=== PATIENT | female | born 1965 | race African-American/Black ===

== ENCOUNTER 2017-05-07 21:16 | Emergency (ER) | payer MEDICAID ==
[~2017-05-07] VITALS: Ht 152.4 cm; Wt 64.0 kg
[~2017-05-07 21:16] MED LIST: GABA300C10 PO; METF500T4 PO
[2017-05-07 21:25] VITALS: BP 142/87
== END 2017-05-07 22:53 | disposition home or self-care (01) ==
LOC: ED 22:24
DX: J02.9 Acute pharyngitis, unspecified (principal); J32.9 Chronic sinusitis, unspecified
CPT/HCPCS: 71046; 99284

== ENCOUNTER 2018-02-14 14:56 | Emergency (ER) | payer MEDICAID ==
[~2018-02-14] VITALS: Ht 152.4 cm; Wt 67.0 kg
[~2018-02-14 14:56] MED LIST changes: +METF500T17 PO; -METF500T4 PO
[2018-02-14 15:51] LABS: MEAN CORPUSCULAR HEMOGLOBIN 29.7 pg (27.0-34.8); MEAN CORPUSCULAR HGB CONC 33.3 g/dL (32.4-35.8); MEAN CORPUSCULAR VOLUME 89.2 fL (80-100); MEAN PLATELET VOLUME 7.9 fL (7.4-10.4); PLATELET COUNT 338 x10^3/uL (130-400); RED BLOOD COUNT 4.89 x10^6/uL (3.82-5.3); RED CELL DISTRIBUTION WIDTH 13.1 % (9.6-15.2)
[2018-02-14 16:00] LABS: ALBUMIN 3.5 g/dL (3.4-5.0); ANION GAP 10 mmol/L (5-15); CALCIUM 9.4 mg/dL (8.5-10.1); CHLORIDE 109 mmol/L (98-107); CREATININE 0.56 mg/dL (0.55-1.02)
[2018-02-14 16:18] LABS: MD YES
[2018-02-14 16:23] LABS: EOS#(MANUAL) 0.09 x10^3/uL (0.0-0.4); EOS% (MANUAL) 1 % (1-7)
[2018-02-14 16:24] LABS: LYMPH#(MANUAL) 5.07 x10^3/uL (1-3.4); LYMPHS% (MANUAL) 59 % (22-44); MONOS#(MANUAL) 0.69 x10^3/uL (0.3-2.7); MONOS% (MANUAL) 8 % (2-9); SEG#(MANUAL) 2.75 x10^3/uL (1.8-6.8); SEGS% (MANUAL) 32 % (42-75)
[2018-02-14 16:25] LABS: <RBC MORPHOLOGY> NORMAL
[2018-02-14 16:26] LABS: <PLATELET ESTIMATE> ADEQUATE; <PLT MORPHOLOGY> NORMAL PLT MORPH
[2018-02-14 16:34] LABS: MICROSCOPIC NOT IND
[2018-02-14 16:52] LABS: CULTURE INDICATED? NO
[2018-02-14] MEDS ORDERED: KETOROLAC 30 MG/1 ML ONE (16:57)
[2018-02-14] MEDS ORDERED: MECLIZINE CHEWABLE 25 MG TAB ONE (16:57)
[2018-02-14] MEDS ORDERED: MECLIZINE CHEWABLE 25 MG TAB PO ONE (17:00)
[2018-02-14] MEDS ORDERED: KETOROLAC 30 MG/1 ML IM ONE (17:00)
[2018-02-14 18:28] VITALS: BP 114/62
== END 2018-02-14 19:02 | disposition home or self-care (01) ==
LOC: ED 18:38
DX: G44.201 Tension-type headache, unspecified, intractable (principal); E11.65 Type 2 diabetes mellitus with hyperglycemia; I10 Essential (primary) hypertension
CPT/HCPCS: 36415; 70450; 80048; 81003; 82040; 85025; 93005; 96372; 99285; J1885

== ENCOUNTER 2018-06-09 08:09 | Emergency (ER) | payer MEDICAID, OTHER ==
[~2018-06-09] VITALS: Ht 152.4 cm; Wt 68.7 kg
[2018-06-09 08:14] VITALS: BP 131/81
[2018-06-09] MEDS ORDERED: KETOROLAC 30 MG/1 ML ONE (08:50)
[2018-06-09] MEDS ORDERED: KETOROLAC 30 MG/1 ML IM ONE (09:00)
== END 2018-06-09 09:58 | disposition home or self-care (01) ==
LOC: ED 09:21
DX: S96.911A Strain of unspecified muscle and tendon at ankle and foot level, right foot, initial encounter (principal); W00.0XXA Fall on same level due to ice and snow, initial encounter; Y93.89 Activity, other specified; Y92.488 Other paved roadways as the place of occurrence of the external cause; Y99.8 Other external cause status
CPT/HCPCS: 73630; 96372; 99283; J1885

== ENCOUNTER 2018-08-12 08:07 | Emergency (ER) | payer MEDICAID ==
[~2018-08-12] VITALS: Ht 152.4 cm; Wt 68.0 kg
[2018-08-12 08:09] VITALS: BP 148/99
[2018-08-12] MEDS ORDERED: GLIP10TA13 PO (08:41)
[2018-08-12] MEDS ORDERED: EMPA10TA PO (08:49)
== END 2018-08-12 08:54 | disposition home or self-care (01) ==
LOC: ED 08:47
DX: K08.89 Other specified disorders of teeth and supporting structures (principal); I10 Essential (primary) hypertension; E11.9 Type 2 diabetes mellitus without complications
CPT/HCPCS: 99283

== ENCOUNTER 2019-09-10 00:14 | Emergency (ER) | payer MEDICAID ==
[~2019-09-10] VITALS: Ht 152.4 cm; Wt 62.1 kg
[~2019-09-10 00:14] MED LIST changes: +EMPA10TA PO; +GLIP10TA13 PO
[2019-09-10] MEDS ORDERED: METF500T17 PO (00:19)
--- NOTE | 2019-09-10 00:30 | NUR ---
PT TO ED WITH C/O LEFT UPPER DENTAL PAIN AND FACIAL SWELLING, PAINFUL WITH PALPATION. PT WAS SEEN X3 DAYS AGO AT DENTAL OFFICE AND ADMINISTERED AMOXICILLIN, PT REPORTS NO DECREASE IN PAIN. REPORTS FACIAL SWELLING STARTED LATE LAST NIGHT. PT REPORTS ABILITY TO SWALLOW INTACT. HAS NOT BEED ABLE TO WEAR DENTURES DUE TO PAIN. PT CONNECTED TO SPO2, ERP IN ROOM TO EVAL PT. CALL LIGHT WITHIN REACH.
[2019-09-10 01:07] VITALS: BP 137/81
--- NOTE | 2019-09-10 01:07 | NUR ---
Break RN: patient discharged with prescriptions and instruction. verbalized undertanding.
== END 2019-09-10 01:10 | disposition home or self-care (01) ==
LOC: ED 00:38
DX: K04.7 Periapical abscess without sinus (principal); K08.89 Other specified disorders of teeth and supporting structures; I10 Essential (primary) hypertension; E11.9 Type 2 diabetes mellitus without complications
CPT/HCPCS: 41800; 99283; 99284